=== PATIENT | female | born 1990 | race Caucasian/White ===

== ENCOUNTER → 2021-02-04 17:05 | Outpatient (CLI) | payer BC, SELFPAY ==
[2021-02-04 17:50] LABS: Add Manual Diff / Slide Review NO; Basophils Absolute Auto 0 /uL (0-100); Basophils Percent Auto 0.3 % (0-2); Eosinophils Absolute Auto 100 /uL (0-450); Hematocrit 39.5 % (36-46); Hemoglobin 13.5 g/dL (12.0-16.0); Lymphocytes Absolute Auto 1400 /uL (1100-4500); Mean Corpuscular HGB Conc 34.2 % (30-36); Mean Corpuscular Hemoglobin 30.6 PG (26-34); Mean Corpuscular Volume 89.4 fL (80-100); Monocytes Absolute Auto 400 /uL (0-900); Monocytes Percent Auto 7.2 % (3-14); Neutrophils Absolute Auto 4000 /uL (1500-7000); Neutrophils Percent Auto 67.5 % (50-75); Platelet Count 194 X10^3/uL (150-400); Red Blood Cell Count 4.42 X10^6/uL (4.0-5.2); Red Cell Distribution Width 12.9 % (11.6-14.8); White Blood Cell Count 5.9 X10^3/uL (4.5-11.0)
[2021-02-04 18:10] LABS: Alanine Aminotransferase 15 IU/L (<35); Albumin 4.5 g/dL (3.5-5.0); Albumin Globulin Ratio 1.4 (1.0-2.8); Alkaline Phosphatase 60 U/L (38-126); Aspartate Aminotransferase 26 IU/L (14-36); BUN Creatinine Ratio 14.5 (6-22); Bilirubin Total 0.4 mg/dL (0.2-1.3); Blood Urea Nitrogen 10 mg/dL (7-17); Calcium 9.4 mg/dL (8.4-10.2); Carbon Dioxide 28 mmol/L (22-32); Chloride 103 mmol/L (98-107); Estimated Glomerular Filt Rate > 60.0 mL/min (>60); Globulin 3.2 g/dL (1.7-4.1); Glucose 115 mg/dL (70-100); HEMOLYSIS < 15 (0-50); Potassium 3.9 mmol/L (3.4-5.1); Sodium 139 mmol/L (137-145); Total Protein 7.7 g/dL (6.3-8.2)
[2021-02-04 18:40] LABS: Thyroid Stimulating Hormone 1.63 uIU/mL (0.47-4.68)
== END ==
PROVIDERS: PCP Family Medicine; Referring Provider Family Medicine; Visit Provider Family Medicine
DX: N92.6 Irregular menstruation, unspecified (principal)
CPT/HCPCS: 36415; 80053; 84443; 85025

== ENCOUNTER → 2021-03-05 08:46 | Outpatient (CLI) | payer BC, SELFPAY ==
--- NOTE | 2021-03-05 | DI.RAD.S_ITS ---
PROCEDURE: FL BARIUM SWALLOW W SPEECH INDICATIONS: Dysphagia, unspecified COMPARISON: None. TECHNIQUE: Examination was conducted in conjunction with speech pathology per standard protocol. In the lateral projection, filming was performed of the patient swallowing. AP projection filming may also be performed with patient swallowing. COMPARISON: FINDINGS: Function: The oral preparatory phase appears normal, with proper containment. The subsequent oral propulsive phase, pharyngeal phase, and esophageal phase of swallowing also appear normal with all proffered substances. No laryngotracheal penetration or aspiration. No pathologic vallecular pooling. Morphology: No cricopharyngeal bar is identified. No cervical esophageal webs. No Zenker's diverticulum. No strictures. IMPRESSION: Negative examination as above Dictated by: Jonh Eastman M.D. on 03/05/2021 at 16:28 Approved by: Jonh Eastman M.D. on 03/05/2021 at 16:28
--- NOTE | 2021-03-05 11:30 | ST.SWALLOW ---
Visit Care Team Role Provider Type Cody Koch DO Attending Provider Physician Primary Care Provider Referring Provider Specialty: Family Practice Address: [address] [place] [address], [facility] Email: [email or web address] Modified Barium Swallow Study [employer] COORDINATOR Modified Barium Swallow Study Start: 03/07/21 09:45 Freq: Status: Active Protocol: Document 03/05/21 09:46 UNA (Rec: 03/07/21 10:23 UNA [id number]) Modified Barium Swallow Study Total Time Visit Start Time 09:30 Visit Stop Time 10:00 Total Visit Minutes [address] Cody Koch Reason for Referral Dysphagia, unspecified Setting Setting Outpatient Care Patient Information Identification Type Name,ID Card Patient History The pt is a 30-yr-old female with complaints of sensations of pressure around her throat which has been constant for ~3 mos, like wearing a turtleneck. She also reported that ~5x over the same period she has experienced significant effort to swallow, typically with solids and helped by drinking liquids. Occasionally, she has also felt pain swallowing saliva while lying down. Subjective Observations The pt arrived on time and provided case history. The process and purpose of the MBSS was explained, and she was agreeable to proceed. Patient Positioning Position View Lat-A/P Imaging Lateral View Textures Administered Trials Presented Thin Liquid via Spoon,Thin Liquid via Cup,Enterprise Liquid via Spoon,Enterprise Liquid via Cup,Dysphagia Blenderized Textures,Regular Textures Oral Phase Source: MBSIMP (TM) (C) Bolus Specific Scoring Grid Lip Closure No Impairment (WNL) Tongue Control During Bolus Hold No Impairment (WNL) Bolus Prep/Mastication No Impairment (WNL) Bolus Transport/Lingual Motion No Impairment (WNL) A/P Lingual Propulsion Delay No Oral Residue WFL Residue Clearing No Impairment (WNL) Nasal Regurgitation No Additional Oral Phase Observations Oral Peripheral Exam: Pt showed symmetrical features WNL of strength, coordination and ROM. Complete natural dentition in excellent condition. Soft palate elevated upon phonation. Pt exhibited occasional gag reflex with paste and cookie trials. No regurgitation. Oral prep and swallow phases were otherwise WNL. Pharyngeal Phase Source: MBSIMP (TM) (C) Bolus Specific Scoring Grid Delayed Initiation of Pharyngeal Swallow No Soft Palate Elevation No Impairment (WNL) Tongue Base Strength/Range of Motion Minimal Impairment Residue Along the Tongue Base Yes: Trace Clearance of Residue Along Tongue Base No Impairment (WNL) Laryngeal Elevation No Impairment (WNL) Anterior Hyoid Movement No Impairment (WNL) Epiglottic Range of Motion Minimal Impairment Vallecular Residue Yes: Trace to mild, greater with liquids than solids Clearance of Vallecular Residue Minimal Impairment Laryngeal Vestibular Closure No Impairment (WNL) Pharyngeal Stripping Wave No Impairment (WNL) Pharyngeal Contraction No Impairment (WNL) Posterior Pharyngeal Wall Residue No Upper Esophageal Sphincter Opening No Impairment (WNL) Residue in the Pyriform Sinuses Yes: Trace with liquids; absent with solids Clearance of Residue in the Pyriform No Impairment (WNL) Sinuses Esophageal Clearance Upright Position No Impairment (WNL) Pharyngoesophageal Backflow Observed No Additional Pharyngeal Phase Observations Mild base of tongue weakness and minimally reduced epiglottic inversion was observed with liquid trials, resulting in trace to mild residue at vallecula. No other pharyngeal impairments noted. A/P View Textures Administered Trials Presented Enterprise Liquid via Cup, Dysphagia Blenderized Textures ,Barium Tablet A/P View Observations Pharyngeal Contraction No Impairment (WNL) Esophageal Function No Impairment (WNL) Esophageal Clearance Upright Position No Impairment (WNL) Clinical Impressions Dysphagia Type Normal Oral and Mild Pharyngeal Dysphagia Findings The pt exhibited hyperactive gag reflex, but otherwise oral prep and swallow phases were WNL. Mildly reduced base of tongue strength and epiglottic inversion were observed with liquid trials, resulting in trace to mild vallecular residue, which was mostly cleared with subsequent swallows. Given the pt's age, a short course of dysphagia therapy is recommended to strengthen the base of tongue and improve consistency of epiglottic ROM in order to prevent symptoms from worsening and improve comfort with swallow. Rehabilitation Potential Excellent Patient Appropriate for Therapy Yes Recommendations Diet Liquids Order Thin Diet Order Regular Medication Recommendation As Tolerated Aspiration Precautions Recommended Precautions Upright at 90 Degrees Treatment Plan Therapy Recommendations Outpatient Speech Therapy Short Term Goals 1. The pt will complete exercises to increase base of tongue strength and consistency of epiglottic ROM to reduce vallecular residue and increase ease and comfort with swallow. Foundation Maker Goals 1. The pt will safely tolerate regular diet and thin liquids with ease and comfort. Placement Recommendation After Discharge Home
== END ==
PROVIDERS: PCP Family Medicine; Referring Provider Family Medicine; Visit Provider Family Medicine
DX: R13.10 Dysphagia, unspecified (principal)
CPT/HCPCS: 74230; 92611

== ENCOUNTER 2021-11-25 23:32 | Emergency (ER) | payer BC, SELFPAY ==
[2021-11-25 23:40] VITALS: BP 126/73; PULSE 112; RESP 22; TEMP 36.6; O2SAT 99
--- NOTE | 2021-11-26 01:43 | DI.CT.S_ITS ---
PROCEDURE: CT ANGIO HEAD AND NECK INDICATIONS: left side numbness, tingling, and weakness TECHNIQUE: Pre-contrast 4.5 mm thick sections acquired from the foramen magnum to the vertex. After the administration of intravenous contrast, 1 mm thick sections acquired from the aortic arch through the [place] of [place]. Post-contrast 4.5 mm thick sections then re-acquired from the foramen magnum to the vertex. 3-dimensional [id number]-sjjmhbfkxw (MIP) and/or volume rendering reformats were acquired of the central intracranial vasculature and neck separately. For radiation dose reduction, the following was used: automated exposure control, adjustment of mA and/or kV according to patient size. COMPARISON: None. FINDINGS: Image quality: Degraded by patient motion artifact. BRAIN: CSF spaces: Ventricles are normal in size and shape. Basal cisterns are patent. No extra-axial fluid collections. Brain: No midline shift. No intracranial bleeds or masses. Elias-white matter interface appears intact. Skull and face: Calvarium and facial bones appear intact, without suspicious lesions. Orbits appear normal. Sinuses: Sinuses and mastoids are clear. HEAD CT ANGIOGRAPHY: Anterior circulation: Intracranial internal carotid arteries are normal in size and flow. The flow within the paired anterior cerebral arteries is normal and symmetric. The flow within the middle cerebral arteries is normal and symmetric. The anterior communicating artery is seen. No aneurysms are seen. Posterior circulation: Visualized portions of the vertebral arteries demonstrate normal caliber, and join to form a normal appearing basilar artery. Flow within the posterior cerebral arteries is normal and symmetric. No aneurysms are seen. Dural sinuses demonstrate normal postcontrast enhancement. NECK CT ANGIOGRAPHY: Carotid system: The great vessels demonstrate a conventional anatomy as they arise from the aortic arch. The origins of the common carotid arteries appear patent. The common carotid arteries demonstrate normal caliber and courses. The bifurcation regions are both widely patent. The internal carotid arteries demonstrate normal calibers and courses. Posterior circulation: Left vertebral artery arises from the aortic arch. The origins of the vertebral arteries both appear widely patent. The more superior extracranial portions of both vertebral arteries also demonstrate normal courses and calibers. They join to form a normal appearing basilar artery. Soft tissues: Visualized neck soft tissues demonstrate no suspicious abnormalities. Bones: No suspicious bony lesions. Visualized cervical spine appears normally aligned. IMPRESSION: 1. No acute intracranial disease process. 2. No large vessel occlusion, vascular stenosis, vascular dissection or aneurysm within limitations related to patient motion artifact. Any quantitative measurements of stenosis were performed using NASCET criteria. Dictated by: Keena Posada MD, PhD on 11/26/2021 at 7:44 Approved by: Keena Posada MD, PhD on 11/26/2021 at 7:49
[2021-11-26 02:10] LABS: Add Manual Diff / Slide Review NO; Basophils Absolute Auto 0 /uL (0-100); Basophils Percent Auto 0.2 % (0-2); Eosinophils Absolute Auto 0 /uL (0-450); Eosinophils Percent Auto 0.2 % (2-4); Hematocrit 36.3 % (36-46); Hemoglobin 12.3 g/dL (12.0-16.0); Lymphocytes Absolute Auto 1100 /uL (1100-4500); Lymphocytes Percent Auto 10.6 % (25-40); Mean Corpuscular Hemoglobin 29.2 PG (26-34); Mean Corpuscular Volume 85.9 fL (80-100); Monocytes Absolute Auto 400 /uL (0-900); Neutrophils Absolute Auto 8400 /uL (1500-7000); Platelet Count 187 X10^3/uL (150-400); Red Blood Cell Count 4.23 X10^6/uL (4.0-5.2); Red Cell Distribution Width 13.8 % (11.6-14.8); White Blood Cell Count 9.9 X10^3/uL (4.5-11.0)
[2021-11-26 02:28] LABS: Alanine Aminotransferase 15 IU/L (<35); Albumin 4.4 g/dL (3.5-5.0); Albumin Globulin Ratio 1.4 (1.0-2.8); Alkaline Phosphatase 65 U/L (38-126); Aspartate Aminotransferase 26 IU/L (14-36); BUN Creatinine Ratio 9.1 (6-22); Bilirubin Total 0.3 mg/dL (0.2-1.3); Blood Urea Nitrogen 6 mg/dL (7-17); C-Reactive Protein Quant < 0.5 mg/dL (<1.0); Calcium 8.8 mg/dL (8.4-10.2); Carbon Dioxide 25 mmol/L (22-32); Chloride 107 mmol/L (98-107); Creatine Kinase 73 U/L (30-135); Estimated Glomerular Filt Rate > 60 mL/min (>60); Globulin 3.2 g/dL (1.7-4.1); Glucose 133 mg/dL (70-100); HEMOLYSIS < 15 (0-50); Potassium 3.4 mmol/L (3.4-5.1); Sodium 139 mmol/L (137-145); Total Protein 7.6 g/dL (6.3-8.2)
--- NOTE | 2021-11-26 02:36 | PC.NURSE ---
Pt declines POC Preg test. Reports had a vasectomy
[2021-11-26 02:37] LABS: Troponin I < 0.012 ng/mL (0.01-0.034)
[2021-11-26 03:00] VITALS: BP 99/55; PULSE 84; O2SAT 96
[2021-11-26 03:01] VITALS: BP 99/55; PULSE 82; RESP 20; O2SAT 98
--- NOTE | 2021-11-26 03:21 | ED.EXTPRO ---
HPI - Extremity Problem General Chief complaint: Extremity Problem,Nontraumatic Stated complaint: nausea, tingling sensation down left side Time Seen by Provider: 11/26/21 01:13 Source: patient Mode of arrival: Ambulatory History of Present Illness HPI Narrative: 31-year-old female nonsmoker with noncontributory medical history presents for evaluation of various symptoms that have been increasingly present over the past days to weeks. She states that she has noted increasing numbness, tingling and maybe even weakness of her left arm and leg. She states she does not have trouble ambulating, has no pain and denies any trauma. She has had no fever or chills. She states on occasion she gets blurring if not fluttering of her vision. She denies any difficulty finding words or with speech. She denies chest pain or shortness of breath. She denies abdominal pain, nausea, vomiting. She has had no dysuria, frequency or urgency. She denies any trouble controlling bowel or bladder. She denies any history of neck, or back injury or noted problems. She denies any change in medications or diet. She has had no recent travel. She denies any known tick exposure. Related Data Previous Rx's Medication Instructions Recorded methylprednisolone 4 mg tablets in See Rx Instructions .ROUTE 11/26/21 a dose pack (Medrol (Tim)) .COMPLEX #21 ea Allergies Allergy/AdvReac Type Severity Reaction Status Date / Time No Known Drug Allergies Allergy Verified 02/04/21 16:32 Review of Systems Review of Systems Narrative: GENERAL: Denies chills, fatigue, malaise, fever, sweats. HEENT: Denies sinus pain, ear pain, sore throat, difficulty swallowing, dizziness. RESPIRATORY: Denies dyspnea, cough, wheezing, hemoptysis, sputum. CARDIOVASCULAR: Denies chest pain, palpitations, orthopnea, edema, GASTROINTESTINAL: Denies nausea, vomiting, abdominal pain, diarrhea, constipation, melena. : Denies dysuria, frequency, incontinence, hematuria, urinary retention. MUSCULOSKELETAL: See HPI SKIN: Denies rash, skin lesions, or other NEUROLOGIC: See HPI PSYCHIATRIC: No concerning psychosocial issues. 12 point review of systems is negative except for those stated above Patient History Medical History Chicken pox (~1997) Dysphagia Ovarian cyst (~2019) Weight gain Family History Grandfather No problems noted. Social History Smoking Status: Never smoker alcohol intake: current (3 ciders per week ) substance use type: former substance user (Marijuana ) and marijuana (Former, quit July 2020 ) Smoking Status: Never smoker Substance Use Type: does not use Exam Narrative Exam Narrative: GENERAL: [31 year old patient appears stated age. Well-developed patient, in mild distress. HEAD: Atraumatic. Normocephalic. EYES: Pupils equal round and reactive. Extraocular motions intact. No scleral icterus. No injection or drainage. ENT: Nose without bleeding, purulent drainage. Throat without erythema, tonsillar hypertrophy or exudate. Airway patent. NECK: Trachea midline. Non tender. No pain or tenderness, no change in symptoms with axial load CARDIOVASCULAR: Regular rate and rhythm without murmurs, gallops, or rubs. RESPIRATORY: Clear to auscultation. Breath sounds equal bilaterally. No wheezes, rales, or rhonchi. GASTROINTESTINAL: Abdomen soft, non-tender, nondistended. EXTREMITIES: No edema or joint tenderness. BACK: Nontender without deformity or crepitance. No flank tenderness. No saddle anesthesia NEURO: AOx3. SKIN: No rash or erythema of visible areas Initial Vital Signs Initial Vital Signs: Vital Signs Temperature 97.8 F 11/25/21 23:40 Pulse Rate 112 H 11/25/21 23:40 Respiratory Rate 22 11/25/21 23:40 Blood Pressure 126/73 11/25/21 23:40 Pulse Oximetry 99 11/25/21 23:40 Scores NIH Stroke Scale Level of Conciousness: Alert, keenly responsive Ask month/age: Answers both questions correctly. Open/close eyes, close hand: Performs both tasks correctly Best gaze horizontal: Normal Visual gaxiola: No visual loss Facial palsy: Normal symetrical movement Left arm drift: No drift for full 10 sec Right arm drift: No drift for full 10 sec Left leg drift: No drift for full 5 sec Right leg drift: No drift for full 5 sec Limb ataxia: Absent Sensory on face/arms/legs: Mild to moderate sensory loss, can tell touch Best language: No aphasia, normal Dysarthria: Normal Extinction or inattention: No abnormality Total NIH Stroke scale score: 1 Course Orders Ordered: ED Orders 11/26/21 01:43 CT angio head and neck Stat 11/26/21 02:00 C-Reactive Protein Quant Stat Complete Blood Count AUTO DIFF Stat Comprehensive Metabolic Panel Stat Magnesium Stat Troponin & CK Cardiac Panel Stat Vital Signs Vital signs: Vital Signs - 8 hr 11/25/21 23:40 11/26/21 03:00 11/26/21 03:01 Temperature 97.8 F Pulse Rate 112 H 84 82 Respiratory Rate 22 20 Blood Pressure 126/73 99/55 L 99/55 L Pulse Oximetry 99 96 98 11/26/21 03:30 11/26/21 04:00 Temperature Pulse Rate 76 75 Respiratory Rate Blood Pressure 98/59 L Pulse Oximetry 96 97 MDM - Extremity (Nontraumatic) Lab Data Result diagrams: 11/26/21 02:00 11/26/21 02:00 Labs: Lab Results 11/26/21 11/26/21 Range/Units 02:00 02:00 WBC 9.9 (4.5-11.0) X10^3/uL RBC 4.23 (4.0-5.2) X10^6/uL Hgb 12.3 (12.0-16.0) g/dL Hct 36.3 (36-46) % MCV 85.9 (80-100) fL MCH 29.2 (26-34) PG MCHC 34.0 (30-36) % RDW 13.8 (11.6-14.8) % Plt Count 187 (150-400) X10^3/uL Neut % (Auto) 85.0 H (50-75) % Lymph % (Auto) 10.6 L (25-40) % Carson % (Auto) 4.0 (3-14) % Eos % (Auto) 0.2 L (2-4) % Baso % (Auto) 0.2 (0-2) % Neut # (Auto) 8400 H (8086-8489) /uL Lymph # (Auto) 1100 (4455-2164) /uL Carson # (Auto) 400 (0-900) /uL Eos # (Auto) 0 (0-450) /uL Baso # (Auto) 0 (0-100) /uL Sodium 139 (137-145) mmol/L Potassium 3.4 (3.4-5.1) mmol/L Chloride 107 (98-107) mmol/L Carbon Dioxide 25 (22-32) mmol/L BUN 6 L (7-17) mg/dL Creatinine 0.66 (0.52-1.04) mg/dL Estimated GFR > 60 (>60) mL/min BUN/Creatinine Ratio 9.1 (6-22) Glucose 133 H (70-100) mg/dL Calcium 8.8 (8.4-10.2) mg/dL Magnesium 2.0 (1.6-2.3) mg/dL Total Bilirubin 0.3 (0.2-1.3) mg/dL AST 26 (14-36) IU/L ALT 15 (<35) IU/L Alkaline Phosphatase 65 (38-126) U/L Total Creatine Kinase 73 (30-135) U/L CK-MB (CK-2) TNP CK-MB (CK-2) Rel Index TNP Troponin I < 0.012 (0.01-0.034) ng/mL C-Reactive Protein < 0.5 (<1.0) mg/dL Total Protein 7.6 (6.3-8.2) g/dL Albumin 4.4 (3.5-5.0) g/dL Globulin 3.2 (1.7-4.1) g/dL Albumin/Globulin Ratio 1.4 (1.0-2.8) Point of Care Testing Test Results Not applicable MDM Narrative Medical decision making narrative: 31-year-old female previously healthy presents with waxing and waning symptoms that have been present for days to weeks. Her symptoms come and go without obvious provocation or palliation. She denies any trauma or fever. She has a very reassuring physical exam, labs and imaging would suggest against any stroke, dissection or other obvious abnormality on imaging. Stroke would be considered unlikely at this point given lack of findings on imaging or persistent findings on exam. Atypical migraine considered but she has no history of headaches or pain. Neurovascular abnormality such as dissection considered but thought unlikely given lack of findings on imaging. Peripheral paresthesia could relate to spasm or inflammatory condition hence decision to use steroids. Other diagnoses such as MS and others are considered but no indication for admission or transfer is present at this time. She is given extensive return precautions and questions have been answered to her apparent satisfaction Discharge Plan Departure Patient Disposition: Home Clinical Impression: Paresthesia of left arm and leg Instructions: DI for Numbness/Tingling Activity Restrictions/Additional Instructions: *You have been diagnosed with [acute on chronic left arm and leg paresthesia. As we discussed your history and physical exam today are reassuring. Labs had no significant abnormalities and the CT scan of your head and neck with IV contrast showed no sign of stroke, bleeding, aneurysm or other significant abnormality. *What to do: *Please continue to take your regular medications as directed. [x] New medication prescriptions sent to your pharmacy: [[facility] ] [ ] New medication written as a paper prescription [ ] No new medications given *Please follow up with your primary care provider in 2-3 days, call for an appointment. Let them know you were seen in the Emergency Department and that we ask that you be seen in follow up. We will electronically transmit a record of today's note if your PCP is in our system *If you do not have a primary care provider please contact the [facility] Resource line at [phone]. They will ask some questions about your medical history and help get you set up with a doctor in the community. *Return to Emergency Department if you should have any new, worsening or concerning symptoms, such as [fever greater than 101 F, shaking chills, worsening pain, persistent vomiting or other bothersome symptoms] Prescriptions: New methylprednisolone [Medrol (Tim)] 4 mg tablets,dose pack See Rx Instructions .ROUTE .COMPLEX Qty: 21 0RF Rx Instructions: orally per package directions Referrals: Cody Koch, [Primary Care Provider] -
[2021-11-26 03:30] VITALS: PULSE 76; O2SAT 96
[2021-11-26 04:00] VITALS: BP 98/59; PULSE 75; O2SAT 97
== END 2021-11-26 04:43 | disposition home or self-care (01) ==
PROVIDERS: Emergency Provider Emergency Medicine; PCP Family Medicine
DX: R20.2 Paresthesia of skin (principal); H53.9 Unspecified visual disturbance
CPT/HCPCS: 36415; 70496; 70498; 80053; 81025; 82550; 83735; 84484; 85025; 86140; 99284; Q9967